=== PATIENT | female | born 1950 | race Caucasian/White ===

== ENCOUNTER → 2016-09-22 | Outpatient (CLI) | payer MEDICARE, BC ==
[~2016-09-22] MED LIST: CHROMIUM PO; MAXZIDE-25 MG1 UDTAB PO; NIACIN PO; SELENIUM 200 MCG; VIT B-12 PO; VITAMIN B6; WELLBUTRIN PO; ZETIA PO; [UNRECOGNIZED DRUG - OTHER]
--- NOTE | ~2016-09-22 | CR126 ---
[facility]. [facility] A Service of [facility] & [facility] RADIOLOGY TEXT RESULTS PATIENT: KWAKU LORENZ LOCATION: [facility] : 48 UNIT #: [id number] AGE: [address]: TRISH MALDONADO APRN SEX: F ORDER DR: [id number] [place] [id number] MR#: [id number] Acc #: [id number] NAME: KWAKU LORENZ : 1950 SEX: F STUDY DATE/TIME: 09/22/2016 17:37 UNIT: [facility] ROOM: STUDY DESCRIPTION: CR Foot Complete Min 3 View Lt Attending Physician: Trish Maldonado Np Referring Physician: Trish Maldonado Np Ordering Physician: Trish Maldonado Np Primary Care Physician: Holly Tong M.D. MEDICAL IMAGING REPORT This report is preliminary unless electronic signature is present. EXAM Left foot 3 views 09/22/2016 HISTORY Acute left foot pain beginning 5 days ago. Foot ran into a chair. FINDINGS 3 views of the left foot demonstrate minimally displaced oblique fracture extending through the mid to distal aspect of the second proximal phalanx. No other fracture or dislocation is seen. The bones are normally mineralized. There is soft tissue swelling about the fracture. IMPRESSION Minimally-displaced fracture involving the mid to distal aspect of the second proximal phalanx. Dictated by... Bhanu Jones M.D. THIS IS AN ELECTRONICALLY VERIFIED REPORT Bhanu Jones M.D. at 09/24/2016 8:02 AM MIRIAM/zay TD: 09/23/2016 08:49 JOB #: [id number] MEDICAL IMAGING REPORT Page 1 of 1
== END | disposition home or self-care (01) ==
LOC: SRAD 17:29
DX: M79.672 Pain in left foot (principal)
CPT/HCPCS: 73630